=== PATIENT | male | born 1975 | race African-American/Black ===

== ENCOUNTER 2017-07-27 07:23 | Emergency (ER) | payer MEDICAID ==
[~2017-07-27] VITALS: Ht 185.4 cm; Wt 91.0 kg
[2017-07-27] MEDS ORDERED: IBUPROFEN 800MG TABLET PO ONE (08:45)
[2017-07-27 09:16] VITALS: BP 104/81
== END 2017-07-27 09:19 | disposition home or self-care (01) ==
LOC: ER 07:37
DX: S90.02XA Contusion of left ankle, initial encounter (principal); S90.32XA Contusion of left foot, initial encounter; X58.XXXA Exposure to other specified factors, initial encounter; Y93.89 Activity, other specified; Y92.092 Bedroom in other non-institutional residence as the place of occurrence of the external cause
CPT/HCPCS: 73610; 73630; 99284; Z7610